=== PATIENT | female | born 1940 | race Caucasian/White ===

== ENCOUNTER → 2020-11-24 11:43 | Outpatient (CLI) | payer MEDICARE, SELFPAY ==
--- NOTE | ~2020-11-24 | XR_ITS ---
XR abdomen obstructive series DATE: 11/24/2020 12:26 INDICATION: Abdominal bloating TECHNIQUE: Supine and upright AP views COMPARISON: None FINDINGS: There is diffuse osteopenia. There is mild levoscoliosis of the lower thoracic and lumbar s pine. A pacemaker lead overlies the cardiac silhouette. The lung bases appear clear. No intraperitoneal free air is detected. There is a prominent amount of fecal material in the colon, particularly the sigmoid colon, ascending colon, hepatic flexure and proximal transverse colon. There is gaseous distention of the mid and dis mj transverse colon and splenic flexure. No thumbprinting is identified along the colon wall. No bow el obstruction is detected. The psoas shadows are intact. No visceromegaly is detected. IMPRESSION: Prominent amount of fecal material and gas in the colon without evidence of obstruction Reviewed, dictated and finalized at [facility]. Reviewed, dictated and finalized at [facility]. IMPRESSION: Prominent amount of fecal material and gas in the colon without chacorta dence of obstruction
== END ==
PROVIDERS: PCP Internal Medicine; Referring Provider Internal Medicine; Visit Provider Internal Medicine
DX: R14.0 Abdominal distension (gaseous) (principal)
CPT/HCPCS: 74019